=== PATIENT | male | born 1955 | race Caucasian/White ===

== ENCOUNTER 2021-09-30 09:48 | Inpatient (IN) | payer BC, OTHER ==
[2021-09-30] MEDS ORDERED: ASPIRIN 81 MG CHEWABLE TABLET ONE (10:17)
[2021-09-30 10:20] LABS: Protime INR 1.33
[2021-09-30 10:26] LABS: Absolute Lymphocytes (CBC) 1.7 K/uL (0.7-4.9); Basophils % 0.6 % (0-1.3); Hematocrit 42.9 % (39.6-49.0); Lymphocytes % 27.7 % (15.3-44.8); MPV 9.4 fL (7.6-11.3); RBC Red Blood Cell Count 4.61 M/uL (4.33-5.43)
[2021-09-30 10:38] LABS: ALT/SGPT 34 U/L (12-78); AST/SGOT 15 U/L (15-37); Albumin 4.1 g/dL (3.4-5.0); Alkaline Phosphatase 112 U/L (45-117); BUN Blood Urea Nitrogen 15 mg/dL (7-18); Bicarbonate 25 mmol/L (21-32); Bilirubin Direct 0.1 mg/dL (0-0.2); Bilirubin Total 0.6 mg/dL (0.2-1.0); Glucose Level 389 mg/dL (74-106); Magnesium 1.9 mg/dL (1.8-2.4); NT PRO-BNP 44 pg/mL (<125); Potassium 3.8 mmol/L (3.5-5.1); Protein, Total 7.8 g/dL (6.4-8.2); Sodium Level 135 mmol/L (136-145); Troponin (Emerg Dept Use Only) < 0.02 ng/mL (0.0-0.045)
--- NOTE | 2021-09-30 11:07 | ER ---
Nurse's Notes [facility] Name: Swapnil Leslie Age: 66 yrs Sex: Male : 1955 Arrival Date: 09/30/2021 Time: 09:50 Bed 17 Private MD: Marcel Alvarado T Diagnosis: Chest pain, unspecified Presentation: 09/30 09:58 Chief complaint: Patient states: Mid-sternal CP, radiates to left arm, since this jl7 morning. Coronavirus screen: At this time, the client does not indicate any symptoms associated with coronavirus-19. Ebola Screen: No symptoms or risks identified at this time. Initial Sepsis Screen: Does the patient meet any 2 criteria? No. Patient's initial sepsis screen is negative. Does the patient have a suspected source of infection? No. Patient's initial sepsis screen is negative. Risk Assessment: Do you want to hurt yourself or someone else? Patient reports no desire to harm self or others. Onset of symptoms was September 30, 2021. Care prior to arrival: None. 09:58 Method Of Arrival: Ambulatory jl7 09:58 Acuity: [place]OR[place] 2 jl7 Triage Assessment: 10:00 General: Appears in no apparent distress. uncomfortable, Behavior is calm, cooperative, jl7 appropriate for age. Pain: Complains of pain in mid-sternal area Pain radiates to left arm Pain currently is 7 out of 10 on a pain scale. Historical: - Allergies: 10:00 No Known Allergies; jl7 - Home Meds: 10:00 losartan 100 mg Oral tab 1 tab once daily [Active]; Aspirin Oral [Active]; jl7 - PMHx: 10:00 Hypertension; jl7 - Immunization history:: Client reports receiving the 2nd dose of the Covid vaccine, Moderna. - Social history:: Smoking status: Patient denies any tobacco usage or history of. Screenin:30 Abuse screen: Denies threats or abuse. Denies injuries from another. Nutritional jl7 screening: No deficits noted. Tuberculosis screening: No symptoms or risk factors identified. Fall Risk IV access (20 points). Total Merino Fall Scale indicates No Risk (0-24 pts). Assessment: 10:04 General: Appears in no apparent distress. obese, well groomed, well developed, Behavior sl2 is calm, cooperative, appropriate for age, Reports chest pain. 10:04 Pain: Complains of pain in left bicep and left arm and chest and mid-sternal area Pain sl2 radiates to left arm Pain currently is 2 out of 10 on a pain scale. at worst was 8 out of 10 on a pain scale. Quality of pain is described as aching, pressure. Neuro: No deficits noted. Level of Consciousness is awake, alert, obeys commands, Oriented to person, place, time, situation, Appropriate for age Forensic Photographer are equal bilaterally Moves all extremities. Full function Gait is steady, Speech is normal, Facial symmetry appears normal. Cardiovascular: Reports chest pain, Denies diaphoresis, lightheadedness, nausea, shortness of breath, Capillary refill < 3 seconds Rhythm is sinus rhythm. Respiratory: No deficits noted. Reports. GI: No deficits noted. No signs and/or symptoms were reported involving the gastrointestinal system. : No deficits noted. No signs and/or symptoms were reported regarding the genitourinary system. EENT: No deficits noted. Derm: No deficits noted. No signs and/or symptoms reported regarding the dermatologic system. Musculoskeletal: No deficits noted. No signs and/or symptoms reported regarding the musculoskeletal system. 10:16 Reassessment: Portable CXR completed. sl2 Vital Signs: 09:58 BP 169 / 106; Pulse 66; Resp 17; Temp 97.2; Pulse Ox 100% ; Weight 99.79 kg; Height 6 jl7 ft. 1 in. (185.42 cm); Pain 7/10; 10:05 BP 187 / 92; Pulse 65; Resp 18; Pulse Ox 98% on R/A; kj1 11:00 BP 158 / 84; Pulse 67; Resp 18; Pulse Ox 99% on R/A; sl2 11:30 BP 175 / 94; Pulse 82; Resp 18; Temp 97.6(O); Pulse Ox 99% on R/A; sl2 12:22 BP 145 / 84; jl7 09:58 Body Mass Index 29.03 (99.79 kg, 185.42 cm) jl7 ED Course: 09:50 Patient arrived in ED. mr 09:51 Marcel Alvarado MD is Private Physician. mr 10:00 Triage completed. jl7 10:00 Arm band placed on right wrist. jl7 10:02 Sel[facility] Patricia [facility]C [facility]. kb 10:02 Richard Palmer MD is Attending Physician. kb 10:10 Initial lab(s) drawn, by ga, sent to lab. EKG done, by ED staff, reviewed by Richard Palmer MD. Inserted saline lock: 20 gauge in right antecubital area, using aseptic technique. Blood collected. 10:15 Yelitza Ball, RN is Primary Nurse. sl2 10:18 XRAY Chest (1 view) In Process Unspecified. EDMS 10:21 Patient has correct armband on for positive identification. Placed in gown. Bed in low mh5 position. Call light in reach. Side rails up X 1. Adult w/ patient. Warm blanket given. underwear hemmer on. Pulse ox on. NIBP on. 10:21 Basic Metabolic Panel Sent. 5 10:21 Basic Metabolic Panel Sent. 5 10:23 Initial lab(s) drawn. 5 10:54 PATIENT REFUSED COVID TEST NOTIFIED PROVIDER. 5 11:06 Abelardo Mariano is Hospitalizing Provider. kb 12:23 No provider procedures requiring assistance completed. Patient admitted, IV remains in jl7 place. intact, No redness/swelling at site. Administered Medications: 10:18 Drug: Aspirin Chewable Tablet 324 mg Route: PO; sl2 Outcome: 11:06 Decision to Hospitalize by Provider. kb 12:25 Admitted to Tele accompanied by jarrell, via wheelchair, room 219, with chart, Report jl7 called to WILBER Rodriguez 12:25 Condition: stable 12:25 Discharge instructions given to patient, family, Instructed on the need for admit, Demonstrated understanding of instructions. 12:[address] [facility] Signatures: Dispatcher [employer] EDMS Selina Patricia, SKILLED NURSING FACILITY COUNSELOR-C SKILLED NURSING FACILITY COUNSELOR-Gaby Fina Renee Maria 5 Ishan Chen RN RN jl7 Ingrid Patricia Sophia, RN RN 2
--- NOTE | 2021-09-30 11:07 | EDPHYS ---
Physician Documentation [facility] Name: Swapnil Leslie Age: 66 yrs Sex: Male : 1955 Arrival Date: 09/30/2021 Time: 09:50 Bed 17 Private MD: Marcel Alvarado T ED Physician Richard Palmer HPI: 09/30 10:17 This 66 yrs old Male presents to ER via Ambulatory with complaints of High kb Blood Pressure, Chest discomfort. 10:17 The patient or guardian reports chest pain that is located primarily in the substernal kb area. Onset: 1 hour(s) ago. The pain radiates to the left arm. Associated signs and symptoms: Pertinent positives: nausea, Pertinent negatives: abdominal pain, cough, diaphoresis, dizziness, headache, lower extremity pain, lower extremity swelling, lightheadedness, near syncope, palpitations, recent travel, shortness of breath, syncope, vomiting. The chest pain is described as dull. Duration: The patient or guardian reports a single episode, that is still ongoing. Modifying factors: The symptoms are alleviated by nothing. the symptoms are aggravated by nothing. Severity of pain: At its worst the pain was moderate in the emergency department the pain is unchanged. The patient has not experienced similar symptoms in the past. The patient has not recently seen a physician. Pt reports substernal chest pain that started an hour ago. Reports dull pain to left upper arm and nausea as well. Has not had these symptoms in the past. Took bp at home and it was 187/106. . Historical: - Allergies: 10:00 No Known Allergies; jl7 - Home Meds: 10:00 losartan 100 mg Oral tab 1 tab once daily [Active]; Aspirin Oral [Active]; jl7 - PMHx: 10:00 Hypertension; jl7 - Immunization history:: Client reports receiving the 2nd dose of the Covid vaccine, Moderna. - Social history:: Smoking status: Patient denies any tobacco usage or history of. ROS: 10:15 Constitutional: Negative for fever, chills, and weight loss. kb 10:15 Cardiovascular: Positive for chest pain, of the mid-sternal area, Negative for edema, orthopnea, palpitations, paroxysmal nocturnal dyspnea. 10:15 Abdomen/GI: Positive for nausea, Negative for abdominal pain, vomiting, diarrhea. 10:15 MS/extremity: Positive for pain, of the left bicep. 10:15 All other systems are negative. Exam: 10:14 ECG was reviewed by the Attending Physician. kb 10:16 Constitutional: This is a well developed, well nourished patient who is awake, alert, kb and in no acute distress. Head/Face: Normocephalic, atraumatic. ENT: Moist Mucous membranes Cardiovascular: Regular rate and rhythm with a normal S1 and S2. No gallops, murmurs, or rubs. No pulse deficits. Respiratory: Respirations even and unlabored. No increased work of breathing, no retractions or nasal flaring. Abdomen/GI: Soft, non-tender. No distention Skin: Warm, dry with normal turgor. Normal color. MS/ Extremity: Pulses equal, no cyanosis. Neurovascular intact. Full, normal range of motion. Neuro: Awake and alert, GCS 15, oriented to person, place, time, and situation. Moves all extremities. Normal gait. Psych: Awake, alert, with orientation to person, place and time. Behavior, mood, and affect are within normal limits. Vital Signs: 09:58 BP 169 / 106; Pulse 66; Resp 17; Temp 97.2; Pulse Ox 100% ; Weight 99.79 kg; Height 6 jl7 ft. 1 in. (185.42 cm); Pain 7/10; 10:05 BP 187 / 92; Pulse 65; Resp 18; Pulse Ox 98% on R/A; kj1 11:00 BP 158 / 84; Pulse 67; Resp 18; Pulse Ox 99% on R/A; sl2 11:30 BP 175 / 94; Pulse 82; Resp 18; Temp 97.6(O); Pulse Ox 99% on R/A; sl2 12:22 BP 145 / 84; jl7 09:58 Body Mass Index 29.03 (99.79 kg, 185.42 cm) jl7 MDM: 10:02 Patient medically screened. kb 10:16 Data reviewed: vital signs, nurses notes. Data interpreted: Pulse oximetry: on room air kb is 98 %. Interpretation: normal. 10:49 The patient was given aspirin in the Emergency Department. Counseling: I had a detailed kb discussion with the patient and/or guardian regarding: the historical points, exam findings, and any diagnostic results supporting the discharge/admit diagnosis, lab results, radiology results, the need for further work-up and treatment in the hospital. ED course: HEART score 4. 11:06 Physician consultation: Abelardo Mariano was contacted at 11:06, regarding admission, to the telemetry unit. patient's condition, and will see patient in ED. 09/30 10:02 Order name: Basic Metabolic Panel 09/30 10:02 Order name: CBC with Diff; Complete Time: 10:27 kb 09/30 10:02 Order name: LFT's; Complete Time: 10:38 kb 09/30 10:02 Order name: Magnesium; Complete Time: 10:38 kb 09/30 10:02 Order name: NT PRO-BNP; Complete Time: 10:38 kb 09/30 10:02 Order name: PT-INR; Complete Time: 10:23 kb 09/30 10:02 Order name: Troponin (emerg Dept Use Only); Complete Time: 10:38 kb 09/30 10:02 Order name: XRAY Chest (1 view); Complete Time: 11:23 kb 09/30 10:02 Order name: EKG; Complete Time: 10:03 kb 09/30 10:03 Order name: Basic Metabolic Panel; Complete Time: 10:38 EDMS 09/30 10:38 Order name: Hemoglobin A1c kb 09/30 11:33 Order name: SARS-COV-2 RT PCR; Complete Time: 12:22 EDMS 09/30 10:02 Order name: Cardiac monitoring; Complete Time: 10:21 kb 09/30 10:02 Order name: EKG - Nurse/Tech; Complete Time: 10:21 kb 09/30 10:02 Order name: IV Saline Lock; Complete Time: 10:21 kb 09/30 10:02 Order name: Labs collected and sent; Complete Time: 10:21 kb 09/30 10:02 Order name: O2 Per Protocol; Complete Time: 10:21 kb 09/30 10:02 Order name: O2 Sat Monitoring; Complete Time: 10:21 kb EC:14 Rate is 62 beats/min. Rhythm is regular. QRS [place] is Normal. [place] interval is normal at kb 170 msec. QRS interval is normal at 120 msec. QT interval is normal at 420 msec. Administered Medications: 10:18 Drug: Aspirin Chewable Tablet 324 mg Route: PO; sl2 Disposition Summary: 09/30/21 11:06 Hospitalization Ordered Hospitalization Status: Observation kb Provider: Abelardo Mariano Location: Telemetry/MedSurg (observation) kb Condition: Stable kb Problem: new kb Symptoms: are unchanged kb Bed/Room Type: Standard kb Room Assignment: 219(09/30/21 12:18) dw Diagnosis - Chest pain, unspecified kb Forms: - Medication Reconciliation Form kb - SBAR form kb Addendum: 10/02/2021 08:36 Co-signature as Attending Physician, Richard Palmer MD I agree with the assessment and s p3 plan of care. Signatures: Dispatcher [employer] EDDE Selina Patricia, JESSI-C CASE MANAGEMENT DIRECTOR-Halima Klein RN RN dw Isahn Chen RN RN jl7 Richard Palmer MD MD sp3 Yelitza Ball RN RN sl2 Corrections: (The following items were deleted from the chart) 09/30 11:34 10:31 CORONAVIRUS+MR.LAB.BRZ ordered. EDDE EDDE 12:18 11:06 kb dw
--- NOTE | 2021-09-30 11:09 | RAD REPORT ---
EXAM DESCRIPTION: Gurjit Single View09/30/2021 10:18 am CLINICAL HISTORY: Chest pain COMPARISON: none FINDINGS: The lungs appear clear of acute infiltrate. The heart is normal size IMPRESSION: No acute abnormalities displayed
--- NOTE | 2021-09-30 11:16 | P.HP ---
Certification for Inpatient Patient admitted to: Observation With expected LOS: <2 Midnights Practitioner: I am a practitioner with admitting privileges, knowledge of patient current condition, hospital course, and medical plan of care. Services: Services provided to patient in accordance with Admission requirements found in Title 42 Section 412.3 of the Code of Federal Regulations Patient History Date of Service: 09/30/21 Reason for admission: Chest discomfort, left arm discomfort History of Present Illness: 66-year-old gentleman with a history of prediabetes and hypertension presented to the emergency department with a complaint of chest and epigastric discomfort of sudden onset. Also reported discomfort in the medial aspect of the left arm. He states that his symptoms was followed by cold sweats. He denies any shortness of breath or palpitation. He denied any nausea. He denies chest pain. Patient presented to the emergency department where her blood chemistry showed elevated blood sugar up to 389. He reported history of prediabetes. Initial troponin negative. EKG unremarkable. Patient reported prior exercise stress test and echocardiogram which he did with Dr. Parra last year and was told the results were normal. CAD risk factors include hypertension and diabetes. Patient hospitalized for ACS rule out. Allergies No Known Allergies Allergy (Unverified 09/11/16 10:17) Home Medications: Ascorbic Acid [Vitamin C] 1 tab PO DAILY 09/30/21 Cholecalciferol (Vitamin D3) [Vitamin D 5,000 IU Cap*] 1 cap PO DAILY 09/30/21 Montelukast [Singulair*] 1 tab PO DAILY 09/30/21 Valsartan/Hydrochlorothiazide [Valsartan-Hctz 160-25 mg Tab] 1 tab PO DAILY 09/30/21 Zinc Gluconate [Zinc] 1 tab PO DAILY 09/30/21 - Past Medical/Surgical History -: Hypertension -: Prediabetes - Social History Smoking Status: Never smoker Alcohol use: No Place of Residence: Home Review of Systems Other: Patient denied any heartburn, he denied any abdominal pain, no nausea or vomiting, no headache. Except as documented, all other systems reviewed and negative. Physical Examination - Physical Exam General: Alert, In no apparent distress, Oriented x3 HEENT: Normocephalic, PERRLA, Mucous membr. moist/pink, Sclerae nonicteric Neck: Supple, JVD not distended Respiratory: Clear to auscultation bilaterally, Normal air movement Cardiovascular: No edema, Regular rate/rhythm, Normal S1 S2 Capillary refill: <2 Seconds Gastrointestinal: Normal bowel sounds, Soft and benign, Non-distended, No tenderness Musculoskeletal: No swelling Integumentary: No rashes, No erythema Neurological: Normal speech, Normal strength at 5/5 x4 extr, Cranial nerves 3-12 intact Lymphatics: No axilla or inguinal lymphadenopathy - Studies Laboratory Data (last 24 hrs) 09/30/21 10:10: PT 15.3 H, INR 1.33 09/30/21 10:10: WBC 6.10, Hgb 14.9, Hct 42.9, Plt Count 181 09/30/21 10:10: Sodium 135 L, Potassium 3.8, BUN 15, Creatinine 0.96, Glucose 389 H, Magnesium 1.9, Total Bilirubin 0.6, AST 15, ALT 34, Alkaline Phosphatase 112 Assessment and Plan - Problems (Diagnosis) (1) Chest pain Current Visit: Yes Status: Acute (2) Hyperglycemia Current Visit: Yes Status: Acute (3) Hypertension Current Visit: Yes Status: Acute - Plan Placed under observation. Trend troponin Start aspirin Check lipid profile Patient reports history of prediabetes. He has severe hyperglycemia today and suspect full-blown diabetes. He is not on any antidiabetic medication. Check hemoglobin A1c. Accu-Cheks and insulin sliding scale for glucose management. Continue home antihypertensives. Hydralazine as needed for BP spikes. Patient reports normal echocardiogram 1 year ago. Further management pending troponin results. - Advance Directives Does patient have a Living Will: No Does patient have a Durable POA for Healthcare: No
[2021-09-30 12:47] VITALS: BMI 29.0
[2021-09-30] MEDS ORDERED: NITROGLYCERIN 0.4 MG/TAB SL PRN (12:47)
[2021-09-30] MEDS ORDERED: MORPHINE 2 MG/ML SYR IV PRN (12:58)
[2021-09-30] MEDS: INSULIN -REGULAR HUMAN 50 UNIT/0.5 ML ML SQ SCH ×3 (13:10→20:55)
[2021-09-30 14:23] LABS: HDL Cholesterol 35 mg/dL (40-60)
[2021-09-30 14:41] LABS: Troponin I 2.51 ng/mL (0.0-0.045)
[2021-09-30 14:56] LABS: LDL, Direct 109 mg/dL (100-129)
[2021-09-30] MEDS ORDERED: ENOXAPARIN 100 MG/ML SYR SQ SCH (15:00)
[2021-09-30] MEDS: CLOPIDOGREL 75 MG TABLET PO SCH (15:50)
--- NOTE | 2021-09-30 15:53 | P.PN ---
Date of Service: 09/30/21 Patient's troponin elevated to 2.5. He is asymptomatic. Repeat EKG shows LVH. No significant ischemic changes. Dr. Saini informed and cardiology consults placed. Dr. Saini recommend cardiac catheterization tomorrow. Patient informed of the elevated troponin and the need for cardiac catheterization tomorrow. We will keep him n.p.o. midnight. Added Plavix 75 mg daily and full dose Lovenox. Continue to trend troponin and serial EKG.
[2021-10-01 04:38] LABS: Absolute Lymphocytes (CBC) 2.1 K/uL (0.7-4.9); Basophils % 0.6 % (0-1.3); Hematocrit 44.8 % (39.6-49.0); Lymphocytes % 23.6 % (15.3-44.8); MPV 8.9 fL (7.6-11.3); RBC Red Blood Cell Count 4.77 M/uL (4.33-5.43)
[2021-10-01 05:30] LABS: Potassium 3.9 mmol/L (3.5-5.1)
[2021-10-01] MEDS ORDERED: LIDOCAINE 1% 20 ML MDV ONE (05:42)
[2021-10-01] MEDS ORDERED: HEPA 1000U/500MLS 2,000 UNIT/1,000 ML BAG IV ONE (05:42)
[2021-10-01] MEDS ORDERED: MIDAZOLAM HCL 2 MG/2 ML INJ ONE (06:25)
[2021-10-01] MEDS ORDERED: FENTANYL CITR 100 MCG/2 ML ONE (06:25)
[2021-10-01] MEDS ORDERED: VERAPAMIL HCL 10 MG/4 ML VIAL IV ONE (06:26)
[2021-10-01] MEDS ORDERED: NITROGLYCERIN 100 MCG/ML SYR (for cath lab use only) IV ONE (06:26)
[2021-10-01] MEDS ORDERED: NITROGLYCERIN/D5W 25 MG/250 ML BTL IV ONE (06:26)
[2021-10-01] MEDS ORDERED: ATROPINE SULF 1 MG/10 ML SYR IV ONE (06:26)
[2021-10-01] MEDS ORDERED: METOPROLOL TARTRATE 5 MG/5 ML INJ IV ONE (06:26)
[2021-10-01] MEDS ORDERED: HEPARIN 5000 UNIT/ML 1 ML VIAL ONE (06:26)
[2021-10-01] MEDS ORDERED: NA CHLORIDE 0.9% 500 ML ONE (06:35)
[2021-10-01] MEDS ORDERED: ASPIRIN 325 MG TAB ONE (07:00)
[2021-10-01] MEDS ORDERED: CLOPIDOGREL 75 MG TABLET ONE (07:00)
--- NOTE | 2021-10-01 07:56 | CON ---
Date of Consultation: 10/01/2021 Reason For Consultation: Elevated troponin. History Of Present Illness: This is a 66-year-old male, who presented to the hospital with substerna l chest discomfort that radiates to the left upper extremity along with some nausea ruled and initial ly a troponin of 2.5 and peaked at range of 8 and then started trending down. He is chest pain free today. He is not known to have any history of coronary artery disease. In fact, he had a cardiac ev aluation about a year ago that was negative. Also was found to have elevated sugars, which is not kn own to be diabetic with history of hypertension. Past Medical History: Hypertension. Medications: Refer to reconciliation sheet for detailed list. Allergies: REVIEWED. Family History: No premature coronary artery disease or cancer. Social History: Does not smoke or drink. Does not use drugs. Review of Systems: All systems reviewed and they were negative except as mentioned in HPI. Physical Examination: Vital Signs: Reviewed. Head and Neck: Pupils are equal, reactive to light. Intact eye movements. No JVD. No cervical lym phadenopathy. Neck is supple. Thyroid is not enlarged. Lungs: Clear to auscultation bilaterally. No rhonchi, rales, or crackles. No accessory muscle use. Heart: Regular rate and rhythm. No extra sounds. Abdomen: Soft, nontender. Bowel sounds positive. No organomegaly. No masses or hernia. No rigidi ty or rebound. Extremities: No edema, clubbing, or cyanosis. Intact pulses. Skin: No rashes. Neurologic: Alert, awake, oriented x3. No acute focal deficits appreciated. Investigations: Labs were reviewed. Assessment And Plan: 1.Non-ST elevation myocardial infarction. The patient was on Lovenox. Plan for coronary angiogram this morning and percutaneous coronary intervention accordingly. 2.New onset diabetes. IV fluid management and further treatment as per primary hospitalist. SR/MODL Voice ID: [id number] Report ID: [id number]
--- NOTE | 2021-10-01 08:12 | OP ---
Date of Procedure: 10/01/2021 Surgeon: IAVNNA BETANCUR Procedures Performed: 1.Selective coronary angiogram. 2.Percutaneous coronary intervention of severe mid OM1 branch using 2.25 x 12 mm Synergy drug-elutin g stent. 3.Left ventriculogram. 4.Left heart catheterization. Access: Right radial artery 6-Sudanese closed with TR band. Indication: Non-ST elevation myocardial infarction. Complications: None. Bleeding: Less than 10 mL. Anesthesia: Total sedation time was 45 minutes. Description Of Procedure: After risks, benefits, and alternatives were explained, the patient agreed to procedure and signed informed consent. The patient was brought into the cardiac catheterization laboratory, prepped and draped in usual sterile fashion. Then, we accessed right radial artery using pediatric micropuncture kit and placed a 6-Sudanese Slender sheath and then we took a 5-Sudanese Roslyn 4 .0 catheter into the aortic root, engaged the left main and right coronary artery, took standard view s and exchanged for an angled pigtail across the aortic valve. Obtained LVEDP and LV gram and pullba ck did not record any gradient. Then, I took a 6-Sudanese EBU 3.5 into the aortic root, engaged left m ain. Gave systemic heparin and 600 of Plavix and then took a short Run-Through into the OM1 branch p assing the area of stenosis, pre-dilated the lesion using a 2.25 balloon and then placed a 2.25 x 12 mm Synergy drug-eluting stent with excellent results. Then, we removed the wire. Final pictures augusto wed satisfactory results. Then, we removed the catheter and sheath and placed TR band with good hemo stasis. Findings: 1.Left main; normal. 2.LAD; large vessel, mid 30% stenosis at the bifurcation of D1, and D1 also has 30% stenosis. Other montemayor, normal vessel. 3.Left circumflex; the main circumflex is normal. OM1 branch has a mid 99% stenosis status post PCI , which is the culprit of the [place]. I used 2.25 x 12 mm Synergy drug-eluting stent. 4.RCA is normal. 5.LVEDP of 3 mmHg. 6.EF of more than 65% with normal wall motion. Conclusions: Severe OM1 disease, which is a culprit for the [place], status post successful PCI as above. Plan: Aspirin, Plavix, high-dose statin. SR/MODL Voice ID: [id number] Report ID: [id number]
[2021-10-01] MEDS ORDERED: INSULIN -REGULAR HUMAN 50 UNIT/0.5 ML ML ONE (08:16)
[2021-10-01] MEDS: INSULIN -REGULAR HUMAN 50 UNIT/0.5 ML ML SQ SCH ×4 (08:20→20:55)
[2021-10-01] MEDS ORDERED: ENOXAPARIN 40 MG/0.4 ML SQ SCH (09:00)
[2021-10-01] MEDS: CLOPIDOGREL 75 MG TABLET PO SCH (09:00)
[2021-10-01] MEDS: ASPIRIN EC 81 MG TAB PO SCH (09:00)
[2021-10-01] MEDS: ZINC SULFATE 220 MG CAP PO SCH (12:15)
[2021-10-01] MEDS: MONTELUKAST 10 MG TAB PO SCH (12:15)
[2021-10-01] MEDS: VALSARTAN 160 MG TAB PO SCH (12:15)
[2021-10-01] MEDS: ASCORBIC ACID 500 MG TABLET PO SCH (12:15)
[2021-10-01] MEDS: VITAMIN D 5,000 UNIT CAP PO SCH (12:15)
[2021-10-01] MEDS: hydroCHLOROthiazide 25 MG TAB PO SCH (12:16)
[2021-10-01 13:10] VITALS: O2SAT 94
--- NOTE | 2021-10-01 14:56 | P.PN ---
Subjective Date of Service: 10/01/21 Chief Complaint: Chest discomfort, left arm discomfort Status Post cardiac catheterization. Patient with hyperglycemia. He has no new complaint. Physical Examination - Vital Signs Temperature: 98.6 F Blood Pressure: 140/71 Pulse: 88 Respirations: 14 Pulse Ox (%): 95 - Physical Exam General: Alert, In no apparent distress, Oriented x3 HEENT: Mucous membr. moist/pink Neck: JVD not distended Respiratory: Clear to auscultation bilaterally, Normal air movement Cardiovascular: No edema, Regular rate/rhythm, Normal S1 S2, No murmurs Gastrointestinal: Soft and benign, Non-distended, No tenderness Musculoskeletal: No swelling Integumentary: No rashes, No erythema Neurological: Normal speech, Normal strength at 5/5 x4 extr Lymphatics: No axilla or inguinal lymphadenopathy - Studies Laboratory Data (last 24 hrs) 09/30/21 13:52: LDL Cholesterol Direct 109 Assessment And Plan - Current Problems (Diagnosis) (1) Chest pain Current Visit: Yes Status: Acute (2) Hyperglycemia Current Visit: Yes Status: Acute (3) Hypertension Current Visit: Yes Status: Acute - Plan Status post cardiac catheterization. Patient noted to have 99% occlusion in LCA which is stented. Continue aspirin and Plavix. Patient with hypertriglyceridemia likely secondary to diabetes. Blood sugar control. Start Lipitor and fenofibrate. Hemoglobin A1c is 9.7. Advised ADA diet. Dietitian/school vocational educator consult Manage blood sugar with insulin sliding scale and Lantus as inpatient. Trial of Metformin and glimepiride for glucose control as an outpatient. Accu-Cheks and insulin sliding scale for glucose management. Continue home antihypertensives. Hydralazine as needed for BP spikes.
[2021-10-01] MEDS ORDERED: D50W 25 GM/50 ML SYRINGE IV PRN (15:03)
[2021-10-01] MEDS ORDERED: GLUCAGON 1 MG/VIAL IM PRN (15:03)
--- NOTE | 2021-10-01 17:06 | P.DS ---
Admission Date: 09/30/21 Discharge Date: 10/01/21 Disposition: ROUTINE DISCHARGE Discharge Condition: FAIR Reason for Admission: Chest discomfort, left arm discomfort - Problems (1) Chest pain Current Visit: Yes Status: Acute (2) Hyperglycemia Current Visit: Yes Status: Acute (3) Hypertension Current Visit: Yes Status: Acute Brief History of Present Illness: 66-year-old gentleman with a history of prediabetes and hypertension presented to the emergency department with a complaint of chest and epigastric discomfort of sudden onset. Also reported discomfort in the medial aspect of the left arm. He states that his symptoms was followed by cold sweats. He denies any shortness of breath or palpitation. He denied any nausea. He denies chest pain. Patient presented to the emergency department where her blood chemistry showed elevated blood sugar up to 389. He reported history of prediabetes. Initial troponin negative. EKG unremarkable. Patient reported prior exercise stress test and echocardiogram which he did with Dr. Parra last year and was told the results were normal. CAD risk factors include hypertension and diabetes. Patient hospitalized for ACS rule out. Hospital Course: Patient admitted to the medical floor. Troponin trended up to 8. He was diagnosed with NSTEMI and started on full dose Lovenox, aspirin, Plavix and metoprolol. Patient seen in consultation by cardiology-Dr. Saini. Cardiac catheterization performed showed 99% occlusion in LCA which was stented. Patient has hyperglycemia. Lipid profile also showed significantly elevated triglyceride level and LDL of 109. Hemoglobin A1c of 9.7. Patient diagnosed with full-blown diabetes. Blood sugar managed with insulin sliding scale during the hospital stay. Patient started on Lipitor and TriCor. He is also discharged with glimepiride and Metformin. Patient stated he is well motivated for diet modification. Patient is currently asymptomatic. Vital Signs/Physical Exam: Temp Pulse Resp BP Pulse Ox 98.2 F 75 18 136/74 95 10/01/21 16:00 10/01/21 16:00 10/01/21 16:00 10/01/21 16:00 10/01/21 16:00 General: Alert, In no apparent distress, Oriented x3 HEENT: Mucous membr. moist/pink Neck: JVD not distended Respiratory: Clear to auscultation bilaterally, Normal air movement Cardiovascular: No edema, Regular rate/rhythm, Normal S1 S2 Gastrointestinal: Soft and benign, Non-distended, No tenderness Musculoskeletal: No swelling Integumentary: No rashes Neurological: Normal strength at 5/5 x4 extr Laboratory Data at Discharge: WBC 9.10 K/uL (4.3-10.9) D 10/01/21 04:13 Hgb 15.7 g/dL (13.6-17.9) 10/01/21 04:13 Hct 44.8 % (39.6-49.0) 10/01/21 04:13 Plt Count 197 K/uL (152-406) 10/01/21 04:13 PT 15.3 SECONDS (9.5-12.5) H 09/30/21 10:10 INR 1.33 09/30/21 10:10 Sodium 138 mmol/L (136-145) 10/01/21 04:13 Potassium 3.9 mmol/L (3.5-5.1) 10/01/21 04:13 BUN 15 mg/dL (7-18) 10/01/21 04:13 Creatinine 0.94 mg/dL (0.55-1.3) 10/01/21 04:13 Glucose 232 mg/dL (74-106) H 10/01/21 04:13 Magnesium 1.9 mg/dL (1.8-2.4) 09/30/21 10:10 Total Bilirubin 0.6 mg/dL (0.2-1.0) 09/30/21 10:10 AST 15 U/L (15-37) 09/30/21 10:10 ALT 34 U/L (12-78) 09/30/21 10:10 Alkaline Phosphatase 112 U/L (45-117) 09/30/21 10:10 Troponin I 7.20 ng/mL (0.0-0.045) H* D 09/30/21 22:22 Triglycerides 567 mg/dL (<150) H 09/30/21 13:52 Cholesterol 231 mg/dL (<200) H 09/30/21 13:52 LDL Cholesterol Direct 109 mg/dL (100-129) 09/30/21 13:52 HDL Cholesterol 35 mg/dL (40-60) L 09/30/21 13:52 Cholesterol/HDL Ratio 6.60 09/30/21 13:52 Home Medications: Ascorbic Acid [Vitamin C] 1 tab PO DAILY 09/30/21 Cholecalciferol (Vitamin D3) [Vitamin D 5,000 IU Cap*] 1 cap PO DAILY 09/30/21 Montelukast [Singulair*] 1 tab PO DAILY 09/30/21 Valsartan/Hydrochlorothiazide [Valsartan-Hctz 160-25 mg Tab] 1 tab PO DAILY 09/30/21 Zinc Gluconate [Zinc] 1 tab PO DAILY 09/30/21 Aspirin [Aspirin EC 81 MG] 81 mg PO DAILY #30 tablet. 10/01/21 Atorvastatin Calcium [Lipitor] 40 mg PO BEDTIME #30 tab 10/01/21 Clopidogrel Bisulfate [Plavix*] 75 mg PO DAILY #30 tablet 10/01/21 Fenofibrate [Tricor*] 160 mg PO BEDTIME #30 tab 10/01/21 Glimepiride 1 mg PO DAILY #30 tablet 10/01/21 Metformin HCl 500 mg PO BID #60 tablet 10/01/21 Metoprolol Tartrate [Lopressor*] 25 mg PO BID #60 tab 10/01/21 New Medications: Aspirin [Aspirin EC 81 MG] 81 mg PO DAILY #30 tablet. Glimepiride 1 mg PO DAILY #30 tablet Atorvastatin Calcium [Lipitor] 40 mg PO BEDTIME #30 tab Metoprolol Tartrate [Lopressor*] 25 mg PO BID #60 tab Metformin HCl 500 mg PO BID #60 tablet Clopidogrel Bisulfate [Plavix*] 75 mg PO DAILY #30 tablet Fenofibrate [Tricor*] 160 mg PO BEDTIME #30 tab Diet: ADA Activity: Ad mingo Followup: Marcel Alvarado MD [Primary Care Provider] - 1 Week Tommie Saini MD [ACTIVE - CAN ADMIT] - 1-2 Weeks Time spent managing pt's care (in minutes): 38
--- NOTE | 2021-10-01 18:25 | EKG ---
Test Date: 2021-09-30 Test Time: 20:15:56 [place] Department Manager: SREG MEASUREMENT RESULTS: Intervals: Rate: 70 MO: 172 QRSD: 112 QT: 384 QTc: 414 [place]: P: 11 MO: 172 QRS: -44 T: 63 INTERPRETIVE STATEMENTS: Normal sinus rhythm with sinus arrhythmia Left axis deviation Left ventricular hypertrophy with repolarization abnormality Cannot rule out Septal infarct, age undetermined Abnormal ECG No previous ECG available for comparison Electronically Signed On 10-01-21 18:23:31 CLOTH WINDER by Dex Parra
--- NOTE | 2021-10-01 18:26 | EKG ---
Test Date: 2021-09-30 Test Time: 15:35:51 Director Facilities Maintenance: HAROON MEASUREMENT RESULTS: Intervals: Rate: 85 MO: 176 QRSD: 108 QT: 366 QTc: 435 [place]: P: 73 MO: 176 QRS: -31 T: 59 INTERPRETIVE STATEMENTS: Normal sinus rhythm with sinus arrhythmia Left axis deviation Abnormal ECG No previous ECG available for comparison Electronically Signed On 10-01-21 18:23:40 MOISTURE METER OPERATOR by Dex Parra
--- NOTE | 2021-10-01 18:28 | EKG ---
Test Date: 2021-09-30 Test Time: 09:59:09 [place] Receiver: YUNIOR MEASUREMENT RESULTS: Intervals: Rate: 62 [place]: 170 QRSD: 120 QT: 420 QTc: 426 [place]: P: -22 [place]: 170 QRS: -27 T: 49 INTERPRETIVE STATEMENTS: Normal sinus rhythm Left ventricular hypertrophy with QRS widening Cannot rule out Septal infarct, age undetermined Lateral infarct, age undetermined Abnormal ECG No previous ECG available for comparison Electronically Signed On 10-01-21 18:23:51 CERTIFIED PEST CONTROL TECHNICIAN by Dex Parra
[2021-10-01] MEDS ORDERED: INSULIN GLARGINE 100 UNITS/ML SQ SCH (21:00)
[2021-10-01] MEDS ORDERED: ATORVASTATIN 40 MG TAB PO SCH (21:00)
[2021-10-01] MEDS ORDERED: FENOFIBRATE 160 MG TAB PO SCH (21:00)
[2021-10-02 03:55] LABS: Hematocrit 42.9 % (39.6-49.0); RBC Red Blood Cell Count 4.56 M/uL (4.33-5.43)
[2021-10-02 04:05] LABS: BUN Blood Urea Nitrogen 13 mg/dL (7-18); Bicarbonate 27 mmol/L (21-32); Glucose Level 182 mg/dL (74-106); Potassium 3.6 mmol/L (3.5-5.1); Sodium Level 137 mmol/L (136-145)
[2021-10-02] MEDS: INSULIN -REGULAR HUMAN 50 UNIT/0.5 ML ML SQ SCH (08:55)
[2021-10-02] MEDS: VITAMIN D 5,000 UNIT CAP PO SCH (08:56)
[2021-10-02] MEDS: CLOPIDOGREL 75 MG TABLET PO SCH (08:56)
[2021-10-02] MEDS: MONTELUKAST 10 MG TAB PO SCH (08:56)
[2021-10-02] MEDS: ASPIRIN EC 81 MG TAB PO SCH (08:56)
[2021-10-02] MEDS: ASCORBIC ACID 500 MG TABLET PO SCH (08:56)
[2021-10-02] MEDS: VALSARTAN 160 MG TAB PO SCH (08:57)
[2021-10-02] MEDS: hydroCHLOROthiazide 25 MG TAB PO SCH (08:57)
[2021-10-02 08:58] VITALS: BP 150/71
[2021-10-02] MEDS: ZINC SULFATE 220 MG CAP PO SCH (08:58)
[2021-10-02 09:03] VITALS: TEMP 97.1
--- NOTE | 2021-10-02 17:19 | P.DS ---
Admission Date: 09/30/21 Discharge Date: 10/02/21 Disposition: ROUTINE DISCHARGE Discharge Condition: FAIR Reason for Admission: Chest discomfort, left arm discomfort Consultations: Cardiology - Dr. Saini Procedures: CXR (09/30): FINDINGS: The lungs appear clear of acute infiltrate. The heart is normal size IMPRESSION: No acute abnormalities displayed Cardiac catheterization (10/01): by Dr. Saini Findings: 1. Left main; normal. 2. LAD; large vessel, mid 30% stenosis at the bifurcation of D1, and D1 also has 30% stenosis. Otherwise, normal vessel. 3. Left circumflex; the main circumflex is normal. OM1 branch has a mid 99% stenosis status post PCI, which is the culprit of the NV. I used 2.25 x 12 mm Synergy drug-eluting stent. 4. RCA is normal. 5. LVEDP of 3 mmHg. 6. EF of more than 65% with normal wall motion. 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 Hemoglobin A1c: 9.7 Problem list NSTEMI CAD s/p stent Diabetes mellitus type 2, [id number]; new diagnosis Hypertension Brief History of Present Illness: 66-year-old gentleman with a history of prediabetes and hypertension presented to the emergency department with a complaint of chest and epigastric discomfort of sudden onset. Also reported discomfort in the medial aspect of the left arm. He states that his symptoms was followed by cold sweats. He denies any shortness of breath or palpitation. He denied any nausea. He denies chest pain. Patient presented to the emergency department where her blood chemistry showed elevated blood sugar up to 389. He reported history of prediabetes. Initial troponin negative. EKG unremarkable. Patient reported prior exercise stress test and echocardiogram which he did with Dr. Parra last year and was told the results were normal. CAD risk factors include hypertension and diabetes. Patient hospitalized for ACS rule out. Hospital Course: Patient admitted to the medical floor. Troponin trended up to 8. He was diagnosed with NSTEMI and started on full dose Lovenox, aspirin, Plavix and metoprolol. Patient seen in consultation by cardiology-Dr. Saini. Cardiac catheterization performed showed 99% occlusion in LCA which was stented. Patient was also noted to have hyperglycemia, A1c of 9.7. Patient denied any history of diabetes/prediabetes. Blood sugars managed with insulin sliding scale during hospitalization. LDL: 109. Patient was started on statin. He stated he is highly motivated for diet modification/weight loss. He was discharged home with glimepiride and Metformin. To check glucose at home, follow-up with PCP. Vital Signs/Physical Exam: Temp Pulse Resp BP Pulse Ox 97.1 F 110 H 18 150/71 H 95 10/02/21 08:00 10/02/21 08:57 10/02/21 08:00 10/02/21 08:57 10/02/21 08:00 General: Alert, In no apparent distress, Oriented x3 HEENT: Sclerae nonicteric Neck: No LAD Respiratory: Clear to auscultation bilaterally, Normal air movement Cardiovascular: No edema, Regular rate/rhythm, Normal S1 S2 Gastrointestinal: Soft and benign, Non-distended, No tenderness Musculoskeletal: No erythema, No tenderness Integumentary: No rashes, No significant lesion Neurological: Normal speech, Normal affect Laboratory Data at Discharge: WBC 8.50 K/uL (4.3-10.9) 10/02/21 03:45 Hgb 14.8 g/dL (13.6-17.9) 10/02/21 03:45 Hct 42.9 % (39.6-49.0) 10/02/21 03:45 Plt Count 179 K/uL (152-406) 10/02/21 03:45 PT 15.3 SECONDS (9.5-12.5) H 09/30/21 10:10 INR 1.33 09/30/21 10:10 Sodium 137 mmol/L (136-145) 10/02/21 03:45 Potassium 3.6 mmol/L (3.5-5.1) 10/02/21 03:45 BUN 13 mg/dL (7-18) 10/02/21 03:45 Creatinine 0.85 mg/dL (0.55-1.3) 10/02/21 03:45 Glucose 182 mg/dL (74-106) H 10/02/21 03:45 Magnesium 2.0 mg/dL (1.8-2.4) 10/02/21 03:45 Total Bilirubin 0.6 mg/dL (0.2-1.0) 09/30/21 10:10 AST 15 U/L (15-37) 09/30/21 10:10 ALT 34 U/L (12-78) 09/30/21 10:10 Alkaline Phosphatase 112 U/L (45-117) 09/30/21 10:10 Troponin I 7.20 ng/mL (0.0-0.045) H* D 09/30/21 22:22 Triglycerides 567 mg/dL (<150) H 09/30/21 13:52 Cholesterol 231 mg/dL (<200) H 09/30/21 13:52 LDL Cholesterol Direct 109 mg/dL (100-129) 09/30/21 13:52 HDL Cholesterol 35 mg/dL (40-60) L 09/30/21 13:52 Cholesterol/HDL Ratio 6.60 09/30/21 13:52 Home Medications: Ascorbic Acid [Vitamin C] 1 tab PO DAILY 09/30/21 Cholecalciferol (Vitamin D3) [Vitamin D 5,000 IU Cap*] 1 cap PO DAILY 09/30/21 Montelukast [Singulair*] 1 tab PO DAILY 09/30/21 Valsartan/Hydrochlorothiazide [Valsartan-Hctz 160-25 mg Tab] 1 tab PO DAILY 09/30/21 Zinc Gluconate [Zinc] 1 tab PO DAILY 09/30/21 Aspirin [Aspirin EC 81 MG] 81 mg PO DAILY #30 tablet. 10/01/21 Atorvastatin Calcium [Lipitor] 40 mg PO BEDTIME #30 tab 10/01/21 Clopidogrel Bisulfate [Plavix*] 75 mg PO DAILY #30 tablet 10/01/21 Fenofibrate [Tricor*] 160 mg PO BEDTIME #30 tab 10/01/21 Glimepiride 1 mg PO DAILY #30 tablet 10/01/21 Metformin HCl 500 mg PO BID #60 tablet 10/01/21 Metoprolol Tartrate [Lopressor*] 25 mg PO BID #60 tab 10/01/21 New Medications: Aspirin [Aspirin EC 81 MG] 81 mg PO DAILY #30 tablet. Glimepiride 1 mg PO DAILY #30 tablet Atorvastatin Calcium [Lipitor] 40 mg PO BEDTIME #30 tab Metoprolol Tartrate [Lopressor*] 25 mg PO BID #60 tab Metformin HCl 500 mg PO BID #60 tablet Clopidogrel Bisulfate [Plavix*] 75 mg PO DAILY #30 tablet Fenofibrate [Tricor*] 160 mg PO BEDTIME #30 tab Diet: ADA Activity: Ad mingo Followup: Marcel Alvarado MD [Primary Care Provider] - 1 Week Tommie Saini MD [ACTIVE - CAN ADMIT] - 1-2 Weeks Time spent managing pt's care (in minutes): 45
--- NOTE | 2021-10-03 06:51 | ECHO ---
HEIGHT: 6 ft 1 in WEIGHT: 219 lb 15.989 oz DATE OF STUDY: 10/01/[address]: sammie live 2-DIMENSIONAL: YES M.MODE: YES DOPPLER: YES COLOR FLOW: YES TDS: PORTABLE: DEFINITY: BUBBLE STUDY: DIAGNOSIS: CHEST PAIN/ HYPERTENSION CARDIAC HISTORY: CATHERIZATION: SURGERY: PROSTHETIC VALVE: PACEMAKER: MEASUREMENTS (cm) DIASTOLIC (NORMALS) SYSTOLIC (NORMALS) IVSd (0.6-1.2) LA Diam (1.9-4.0) LVEF % LVIDd (3.5-5.7) LVIDs (2.0-3.5) %FS % LVPWd (0.6-1.2) Ao Diam 3.3 (2.0-3.7) 2 DIMENSIONAL ASSESSMENT: RIGHT ATRIUM: NORMAL LEFT ATRIUM: NORMAL RIGHT VENTRICLE: NORMAL LEFT VENTRICLE: NORMAL TRICUSPID VALVE: NORMAL MITRAL VALVE: NORMAL PULMONIC VALVE: NORMAL AORTIC VALVE: NORMAL PERICARDIAL EFFUSION: NONE AORTIC ROOT: NORMAL LEFT VENTRICULAR WALL MOTION: NORMAL DOPPLER/COLOR FLOW: NORMAL COMMENTS: TECHNICALLY DIFFICULT STUDY. GROSSLY NORMAL LEFT VENTRICULAR SIZE AND FUNCTION. TECHNOLOGIST: LUISITO MARCELINO
== END 2021-10-02 09:26 | disposition home or self-care (01) | DRG 247 ==
LOC: ER 09:48 → ERHOLD 11:41 → 2ND 12:23 → OBSVTOIN 15:57
PROVIDERS: ADMIT Internal Medicine; ATTEND Hospitalist
PROC: 027034Z Dilation of Coronary Artery, One Artery with Drug-eluting Intraluminal Device, Percutaneous Approach (ICD-10-PCS; principal; 2021-10-01)
PROC: 4A023N7 Measurement of Cardiac Sampling and Pressure, Left Heart, Percutaneous Approach (ICD-10-PCS; 2021-10-01)
PROC: B2111ZZ Fluoroscopy of Multiple Coronary Arteries using Low Osmolar Contrast (ICD-10-PCS; 2021-10-01)
PROC: B2151ZZ Fluoroscopy of Left Heart using Low Osmolar Contrast (ICD-10-PCS; 2021-10-01)
DX: I21.4 Non-ST elevation (NSTEMI) myocardial infarction (principal); E11.65 Type 2 diabetes mellitus with hyperglycemia; I25.10 Atherosclerotic heart disease of native coronary artery without angina pectoris; I10 Essential (primary) hypertension; Z79.82 Long term (current) use of aspirin; Z79.899 Other long term (current) drug therapy; Z79.02 Long term (current) use of antithrombotics/antiplatelets; Z79.84 Long term (current) use of oral hypoglycemic drugs; Z20.822 Contact with and (suspected) exposure to COVID-19
CPT/HCPCS: 36415; 71045; 80048; 80061; 80076; 82947; 83036; 83735; 83880; 84484; 85025; 85027; 85347; 85610; 92928; 93005; 93306; 93458; 99285; C1725; C1893; G0378; J1644; J1650; J1815; J2250; J2270; J3010; J7040; U0003